=== PATIENT | female | born 1955 | race Caucasian/White ===

== ENCOUNTER → 2016-08-04 | Outpatient (CLI) | payer OTHER ==
--- NOTE | 2016-08-04 12:45 | Discharge Instructions ---
Discharge Instructions Procedure Procedure Date: Aug 04, 2016. Reason for visit: Lt Mass. Discharge Discharge Date: Aug 04, 2016. Discharge Diagnosis: post left breast ultrasound guided core biopsy Instructions Activity Recommendations: Additional Limitations (see below) Return to School/Work: no limitations Recommended Home Diet: No Limitations Provider Instructions: ACTIVITY RECOMMENDATIONS: * No lifting, pushing, pulling or exercising the affected side for three days. RETURN TO SCHOOL/WORK: * You may return to work/school after the procedure, but do not perform any strenuous activities for 24 to 48 hours. MEDICATIONS: * Tylenol (two 325 mg) every four to six hours if needed for mild pain (if not allergic to Tylenol). DIET: * Resume previous diet. SPECIAL CARE INSTRUCTIONS: * Keep biopsy site dry for 24 hours. May shower after 24 hours, but do not soak (bathe) incision. * May remove Tegaderm (plastic patch) tomorrow AFTER showering. * Leave the steri-strips on for one week. Allow the steri-strips to fall off by themselves. If not off after one week, you may remove them. You may place a Bandaid crosswise over the strips, if desired. * Apply ice 10 minutes on and 10 minutes off as needed. * Wear a bra at bedtime to sleep more comfortably for 2-3 days. * Your referring physician should have the results after approximately 5 to 7 business days. * Call for unusual bleeding, fever, drainage, etc or if you have any questions call [phone] during normal business hours or after hours call Dr Larios, . FOLLOW UP VISIT: Follow-up with Referring Physician as scheduled. Benigno Ray Recommendations: Call your doctor if: * Temperature above 101 degrees * Pain not relieved by pain medicine ordered * There is increased drainage or redness from any incision * You have any unanswered questions or concerns. Your Doctors Instructions noted above were prepared by provider Bea Larios. Patient Signature Section: Patient Instructions Signature Page Cristina Suh Patient (or Guardian) Signature/Date: I have read and understand the instructions given to me by my caregivers. Caregiver/RN/Doctor Signature/Date: The above-named patient and/or guardian has received patient instructions on this date. + Original Patient Signature Page (only) stays with chart. Please make copy for patient.
--- NOTE | 2016-08-04 16:35 | MAMMOGRAPHY REPORT ---
UNILATERAL LEFT DIGITAL DIAGNOSTIC MAMMOGRAM TOMOSYNTHESIS WITH CAD: 08/04/2016 CLINICAL HISTORY: Palpable lump left breast. Please refer to the report from left breast ultrasound guided core biopsy performed at the same time for full detail. IMPRESSION: POST PROCEDURE IMAGING FOR MARKER PLACEMENT Please refer to the report from left breast ultrasound guided core biopsy performed at the same time for full detail. Approximately 10% of breast cancers are not detected with mammography. A negative mammographic repor t should not delay biopsy if a clinically suggestive mass is present. Bea Larios M.D. ay/:08/04/2016 15:06:10 Learning And Development Officer: Margot Anderson RT(R)(M), [facility] BI-RADS Code: Post Procedure Imaging For Marker Placement
--- NOTE | 2016-08-04 16:36 | MAMMOGRAPHY REPORT ---
THIS REPORT HAS BEEN AMENDED. ULTRASOUND OF LEFT BREAST: 08/04/2016 CLINICAL HISTORY: 60-year-old woman presents for sonographic assessment of a palpable mass in the fa r lateral 2:00 left breast. The patient reports she has felt this lump for approximately one year. No skin changes or nipple discharge. The patient underwent surgical consultation with Dr. Mcgovern, who recommended excision. COMPARISON: Comparison is made to exams dated: 12/24/2014 mammogram, 12/30/2015 mammogram, and 017 mammogram - [facility]. FINDINGS: Real-time high-resolution sonographic evaluation was performed in the area of palpable lorena mp pointed out by the patient (with in the 2:00 left breast approximately 8 cm from the nipple). So me of the initial ultrasound images are mislabeled as 2:00, 5 cm from the nipple. In the area of pa lpable lump on palpation, there is a firm 2 cm mass. On ultrasound, there is vague architectural di stortion within an island of dense fibroglandular tissue, which is best appreciated in the anti-radi al plane. Accurate measurements are difficult to obtain but this area measures approximately 1.8 x 1.5 cm. This is concerning for an infiltrative process and definitive characterization with tissue sampling is recommended. Additional sonographic evaluation in the adjacent 1:00 left breast, axilla ry tail and left axilla demonstrates several morphologically normal lymph nodes within cortices. No suspicious adenopathy is identified. IMPRESSION: ACR BI-RADS CATEGORY 4B: INTERMEDIATE SUSPICION FOR MALIGNANCY - FOLLOW-UP RECOMMENDED The firm palpable lump in the 2:00 left breast correlates with a subtle area of architectural distor tion in the 2:00 left breast, 8 cm from the nipple on ultrasound. Given the subtle nature accurate measurements are difficult to obtain but they are approximately 1.8 x 1.5 cm. This mass/architectur al distortion is indeterminate and further evaluation with tissue sampling is recommended. These results and recommendations were discussed with the patient, her and Dr. Mcgovern at the time of the exam. An ultrasound-guided core needle biopsy was performed during the same appointmen t and please refer to a separate report for full detail. Bea Larios M.D. ay/:08/04/2016 15:05:30 Animal Husbandry Technician: Dr. Bea Larios, [facility] letter sent: Abnormal / BI-RADS Code: ACR BI-RADS Category 4B: Intermediate Suspicion For Malignancy AMENDMENT: 08/04/2016 Bea Larios M.D. Left CC and MLO 2-D digital and tomosynthesis images as well as a 2-D left exaggerated lateral CC vi ew prior to biopsy at the same time as the diagnostic left breast ultrasound. The triangular palpab le marker is visualized on the CC and exaggerated lateral CC views. There is questionable net developer architect ural distortion near the area of concern on the left CC view slice 14/33. No corresponding abnormal ity is seen on the MLO view including tomosynthesis images and the ultrasound was subsequently perfo rmed. Amended BI-RADS: n/a
--- NOTE | 2016-08-04 16:36 | MAMMOGRAPHY REPORT ---
THIS REPORT HAS BEEN AMENDED. ULTRASOUND GUIDED BIOPSY LEFT BREAST: 08/04/2016 CLINICAL HISTORY: Palpable mass in the 2:00 left breast with subtle area of architectural distortion seen on ultrasound. Patient presents for ultrasound guided core biopsy. COMPARISON: Comparison is made to exams dated: 12/24/2014 mammogram, 12/30/2015 mammogram, 08/04/2016 mammogram, and 08/04/2016 ultrasound - [facility]. PATIENT CONSENT: The procedure, risks and benefits were discussed with the patient and informed writ ten consent was obtained. Specific risks to this procedure include: bleeding, infection, puncture of adjacent structure, nontarget biopsy, sampling error and medication reaction. PROCEDURE DESCRIPTION: A time out was performed and the left breast was agreed as the site of biopsy . The skin was prepped and draped in the usual sterile fashion. The subtle area of architectural dis tortion in the 2:00 left breast was chosen as the target for biopsy. Subcutaneous and intraparenchym al 1% buffered lidocaine was administered as local anesthesia. A skin incision was made. Through th e incision, 4 samples were taken with a 14 gauge Achieve biopsy device. A metallic marker was placed at the biopsy site. Hemostasis was achieved after manual compression. The patient tolerated the pro cedure well and there was no immediate complication. The samples were sent to the pathology departm ent in an appropriately labeled container. Post procedure exaggerated lateral left CC tomosynthesis and left ML views were obtained. The biops y marker clip is only seen on the exaggerated lateral left CC tomosynthesis images. No significant postbiopsy hematoma is identified. Pathology is pending. IMPRESSION: ULTRASOUND GUIDED BIOPSY Status post ultrasound-guided core needle biopsy of an ill-defined area of architectural distortion corresponding to a palpable lump in the 2:00 left breast, 8 cm from the nipple. A biopsy marker was placed at the site. The patient will receive notification of the biopsy results from her referring physician. Bea Larios M.D. ay/:08/04/2016 15:04:26 Rubber Compounder Supervisor: Margot URENA)(Anson), [facility] AMENDMENT: 08/06/2016 Bea Larios M.D. 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 ER and [place] positive, HER-2/ curt negative. The pathology results are concordant with the imaging appearance on ultrasound. Due to the poor visualization of the tumor mammographically as well as heterogeneously dense breasts, co nsider further evaluation with bilateral breast MRI to assess extent of disease including pectoralis muscle and exclude the possibility of contralateral disease. It should be noted that at the time o f diagnostic ultrasound performed on 08/04/2016 a morphologically normal lymph node was seen in the 1:00 axis/axillary tail and a few other morphologically abnormal left axillary lymph nodes were iden tified. However, both axillae could also be fully evaluated on MRI.
== END | disposition home or self-care (01) ==
LOC: C.MAMM 11:18
PROVIDERS: ATTEND Surgery
DX: C50.912 Malignant neoplasm of unspecified site of left female breast (principal)

== ENCOUNTER → 2016-12-30 | Outpatient (CLI) | payer OTHER ==
--- NOTE | 2016-12-31 07:54 | MAMMOGRAPHY REPORT ---
UNILATERAL RIGHT DIGITAL DIAGNOSTIC MAMMOGRAM TOMOSYNTHESIS WITH CAD AND RIGHT ULTRASOUND: 12/30/2016 CLINICAL HISTORY: 61-year-old woman with a personal history of left breast cancer status post lumpect kevin 2 currently undergoing XRT. She presents for annual screening evaluation of the right breast. TECHNIQUE: Right breast tomosynthesis in addition to standard 2D mammography was performed. Current shauna richey was also evaluated with a Computer Aided Detection (CAD) system. COMPARISON: Comparison is made to exams dated: 12/30/2015 mammogram, 12/24/2014 mammogram, 08/04/2016 m ammogram, 08/04/2016 ultrasound, and 08/04/2016 ultrasound biopsy - [facility]. BREAST COMPOSITION: The tissue of the right breast is heterogeneously dense, which may obscure small masses. FINDINGS: The right breast parenchyma pattern is similar to prior mammograms. There are mild vascul ar calcifications and a few scattered benign-appearing round and punctate microcalcifications. No wise spicious mass, architectural distortion or cluster of suspicious microcalcifications is seen. Real-time high-resolution sonographic evaluation was performed throughout the right breast including the retroareolar aspect of the breast and right axilla. The breast parenchymal echotexture is hetero geneousdense. Normal fibroglandular tissue is seen without a discrete solid or cystic mass. A morp hologically normal lymph node is seen in the right axilla, without evidence of suspicious adenopathy. IMPRESSION: ACR BI-RADS CATEGORY 2: BENIGN, ULTRASOUND ACR BI-RADS CATEGORY 2: BENIGN There is no mammographic or sonographic evidence of malignancy in the right breast. Recommend routin e mammography of the right breast in 1 year. Also recommend diagnostic mammography in the left breas t after cessation of treatment to establish new baseline. The patient has been verbally notified of the results. Approximately 10% of breast cancers are not detected with mammography. A negative mammographic report should not delay biopsy if a clinically suggestive mass is present. Bea Larios M.D. ay/:12/30/2016 13:20:21 Watcher Automat Long Goods: Mc URENA)(Anson), [facility] letter sent: Normal 1/2 BI-RADS Code: ACR BI-RADS Category 2: Benign Ultrasound BI-RADS: ACR BI-RADS Category 2: Benign
== END | disposition home or self-care (01) ==
LOC: C.MAMM 12-16 08:56
PROVIDERS: ATTEND Surgery
DX: Z12.31 Encounter for screening mammogram for malignant neoplasm of breast (principal); Z85.3 Personal history of malignant neoplasm of breast; Z08 Encounter for follow-up examination after completed treatment for malignant neoplasm

== ENCOUNTER → 2017-06-28 | Outpatient (CLI) | payer BC ==
--- NOTE | 2017-06-28 14:43 | MAMMOGRAPHY REPORT ---
BILATERAL DIGITAL DIAGNOSTIC MAMMOGRAM TOMOSYNTHESIS WITH CAD AND TARGETED LEFT ULTRASOUND: 06/28/2017 CLINICAL HISTORY: Patient presents for diagnostic evaluation of both breasts. She has a personal his tory of left breast cancer status post breast conservation therapy and is 1 year out from treatment. She also reports swelling and tenderness throughout the left breast. TECHNIQUE: Bilateral breast tomosynthesis in addition to standard 2D mammography was performed. 2-D and tomosynthesis left exaggerated lateral CC and spot magnification left CC and ML views were obtain ed. Current study was also evaluated with a Computer Aided Detection (CAD) system. COMPARISON: Comparison is made to exams dated: 12/30/2016 mammogram, 08/04/2016 ultrasound biopsy, 07/09 ultrasound, 08/04/2016 mammogram, 12/30/2015 mammogram, and 12/24/2014 mammogram - [facility]. BREAST COMPOSITION: The tissue of both breasts is heterogeneously dense, which may obscure small mas ses. FINDINGS: A square-shaped pain marker overlies the upper outer posterior left breast. There is expec shauna architectural distortion in the upper outer posterior left breast, at the site of prior lumpectom y. No unexpected architectural distortion, obvious new mass, asymmetry or suspicious calcifications identified. Real-time high-resolution ultrasound was performed throughout the left breast for the tenderness and swelling described by the patient. There is mild diffuse skin thickening most prominent near the simon gical scar in the 2:00 left breast. No suspicious solid or cystic mass is identified. No evidence o f trabecular edema or focal unexpected skin thickening. No drainable fluid collection identified. IMPRESSION: ACR-BI-RADS CATEGORY 3: PROBABLY BENIGN, TARGETED ULTRASOUND ACR-BI-RADS CATEGORY 3: PRO BABLY BENIGN 1. Expected posttreatment changes in the left breast. No mammographic or sonographic evidence of ma lignancy. Continued clinical follow-up is recommended for the diffuse left breast swelling and tende rness. If there is continued clinical concern, can consider further evaluation with a breast MRI, gi noel the far posterior location of the patient's initial carcinoma, mammographically occult nature, an d dense breasts. 2. Stable mammographic appearance of the right breast, without mammographic evidence of malignancy. Advise routine right mammography in one year. These results and recommendations were discussed with the patient at the time of the exam. Follow-up left diagnostic tomosynthesis mammography and possible ultrasound is recommended in 6 months, to ens ure longer stability after treatment. Approximately 10% of breast cancers are not detected with mammography. A negative mammographic report should not delay biopsy if a clinically suggestive mass is present. Bea Larios M.D. ay/:06/28/2017 11:59:06 Pet House Sitter: Margot Almonte, [facility] letter sent: Follow Up Recommended 3 BI-RADS Code: ACR-BI-RADS Category 3: Probably Benign Ultrasound BI-RADS: ACR-BI-RADS Category 3: Pr obably Benign
== END | disposition home or self-care (01) ==
LOC: C.MAMM 10:38
PROVIDERS: ATTEND Surgery
DX: Z85.3 Personal history of malignant neoplasm of breast (principal); Z08 Encounter for follow-up examination after completed treatment for malignant neoplasm; N64.4 Mastodynia

== ENCOUNTER → 2017-12-27 | Outpatient (CLI) | payer BC ==
--- NOTE | 2017-12-28 07:31 | MAMMOGRAPHY REPORT ---
UNILATERAL LEFT DIGITAL DIAGNOSTIC MAMMOGRAM TOMOSYNTHESIS WITH CAD: 12/27/2017 CLINICAL HISTORY: 62-year-old woman with a personal history of left breast cancer status post breast conservation treatment presents for continued close follow-up imaging of the left breast. TECHNIQUE: Left breast CC and MLO 2D and tomosynthesis images; spot magnification left CC and ML view s were obtained. Current study was also evaluated with a Computer Aided Detection (CAD) system. COMPARISON: Comparison is made to exams dated: 06/28/2017 mammogram, 12/30/2016 mammogram, 08/04/2016 m ammogram, 12/30/2015 mammogram, and 12/24/2014 mammogram - [facility]. BREAST COMPOSITION: The tissue of left breast is heterogeneously dense, which may obscure small beverly s. FINDINGS: A linear scar marker overlies the upper outer posterior left breast, denoting the prior lum pectomy site. There are mild to moderate vascular calcifications in the left breast. No new focal s kin thickening or nipple retraction appreciated. No suspicious mass, asymmetry, architectural distort ion or cluster of microcalcifications is seen. IMPRESSION: ACR-BI-RADS CATEGORY 3: PROBABLY BENIGN Stable mammographic appearance of the left breast, including postsurgical changes in the upper outer quadrant, without mammographic evidence of malignancy. Recommend another six-month close follow-up l eft diagnostic tomosynthesis mammogram and possible ultrasound to ensure longer stability after treat ment. Annual right mammography will also be due at that time. These results and recommendations were discussed with the patient at the time of the exam. Some breast cancers are not detected with mammography. A negative mammographic report should not ligia y biopsy if a clinically suggestive mass is present. Bea Larios M.D. ay/:12/27/2017 10:16:29 Sheep Sticker: Margot Almonte, [facility] letter sent: Follow Up Recommended 3 BI-RADS Code: ACR-BI-RADS Category 3: Probably Benign
== END | disposition home or self-care (01) ==
LOC: C.MAMM 09:06
PROVIDERS: ATTEND Surgery
DX: Z85.3 Personal history of malignant neoplasm of breast (principal); Z08 Encounter for follow-up examination after completed treatment for malignant neoplasm